=== PATIENT | female | born 1975 | race Caucasian/White ===

== ENCOUNTER 2017-11-08 08:54 | Outpatient (CLI) | payer OTHER ==
[2017-11-08] MEDS ORDERED: Magnevist 469MG/ML 20 ML VIAL ONE (09:00)
[2017-11-08 10:01] LABS: #Basophils 0.1 thou/uL (0.0-0.2); #Eosinphils 0.1 thou/uL (0.0-0.7); #Lymphocytes 1.5 thou/uL (1.20-3.40); #Monocytes 0.4 thou/uL (0.11-0.59); #Neutrophils 4.3 thou/uL (1.40-6.50); %Basophils 1.1 % (0.0-1.0); %Eosinophils 1.8 % (0.0-10.0); %Monocytes 5.8 % (0.0-10.0); %Neutrophils 68.3 % (42.0-75.0); Mean Corpuscular HGB CONC 33.8 g/dL (32.0-36.0); Mean Corpuscular Hemoglobin 30.4 pg (27.0-31.0); Mean Corpuscular Volume 89.9 fl (81.0-99.0); Mean Platelet Volume 6.7 fL (7.4-10.4); Platelet Count 270 thou/uL (130-400); RBC Distribution Width 11.5 % (11.5-14.5); Red Blood Cell (RBC) Count 4.27 mill/uL (4.20-5.40); White Blood Cell (WBC) Count 6.3 thou/uL (4.8-10.8)
[2017-11-08 10:19] LABS: ALT (SGPT) 6 U/L (8-55); AST (SGOT) 16 U/L (5-34); Albumin 4.6 g/dL (3.5-5.0); Alkaline Phosphatase 96 U/L (40-150); Anion Gap 13 mmol/L (10-20); BUN (Urea Nitrogen) 16 mg/dL (7.0-18.7); Bilirubin, Total 0.4 mg/dL (0.2-1.2); Calc. Creatinine Clearance 0 mL/min (70-130); Calcium 9.6 mg/dL (7.8-10.44); Carbon Dioxide 28 mmol/L (22-29); Chloride 105 mmol/L (98-107); Estimated GFR-MDRD 76; Globulin 2.8 g/dL (2.4-3.5); Glucose 79 mg/dL (70-105); Potassium 3.7 mmol/L (3.5-5.1); Protein, Total 7.4 g/dL (6.0-8.3); Sodium 142 mmol/L (136-145)
--- NOTE | 2017-11-08 13:14 | MRI ---
BRAIN MRI WITH AND WITHOUT CONTRAST: Date: 11/08/17 HISTORY: Multiple sclerosis, relapsing. No prior imaging for comparison. FINDINGS: There are bilateral periventricular signal abnormalities. There is no restricted diffusion, mass effe ct, or midline shift. Ventricular system is normal in size. No intracranial hemorrhagic susceptibilit y. Corpus callosal signal abnormality also present. There is no pathologic intra-axial enhancement. IMPRESSION: MRI findings are correlative to the provided history of multiple sclerosis. No active demyelinating l esions are evident by MR imaging. POS: [facility]
--- NOTE | 2017-11-08 13:19 | MRI ---
CERVICAL SPINE MRI WITH AND WITHOUT CONTRAST: Date: 11/08/17 INDICATION: Multiple sclerosis, relapsing. FINDINGS: Mild degenerative hypertrophy at the atlantodental articulation present. There is a mild disc osteoph yte complex at C5-6 effacing ventral thecal sac. No evidence of acute marrow edema. No significant cervical spinal malalignment. Postcontrast imaging reveals no evidence for pathologic intramedullary enhancement. IMPRESSION: 1. No evidence of demyelinating plaque of the cervical spine. 2. Mild degenerative change. POS: [facility]
== END 2017-11-08 08:55 | disposition home or self-care (01) ==
LOC: SCSMRI 08:54
PROVIDERS: ATTEND Student in an Organized Health Care Education/Training Program
DX: G35 Multiple sclerosis (principal); E55.9 Vitamin D deficiency, unspecified; E53.8 Deficiency of other specified B group vitamins
CPT/HCPCS: 36415; 70553; 72156; 80053; 82306; 82607; 85025; A9579

== ENCOUNTER 2018-08-27 09:47 | Outpatient (CLI) | payer OTHER ==
--- NOTE | 2018-08-27 11:44 | ULT ---
ULTRASOUND ABDOMEN COMPLETE: INDICATIONS: Nausea. TECHNIQUE: Ferrari-scale ultrasound evaluation of the liver, gallbladder, spleen, pancreas, common bile duct, kidne ys, abdominal aorta, and inferior vena cava (IVC). FINDINGS: There is no focal hepatic lesion or acute gallbladder pathology. The spleen and kidneys are grossly unremarkable. The common duct is normal, measuring 3 mm in diameter. Crum sign is reported as neg ative. No ascites or other significant pathology identified within the abdomen by sonographic evalua tion. IMPRESSION: No acute intraabdominal pathology. POS: [facility]
== END 2018-08-27 09:48 | disposition home or self-care (01) ==
LOC: SCSULT 09:47
PROVIDERS: ATTEND Internal Medicine
DX: R11.0 Nausea (principal)
CPT/HCPCS: 76700

== ENCOUNTER 2024-03-07 11:12 | Outpatient (CLI) | payer BC | END 2024-03-07 11:13 | disposition home or self-care (01) | LOC: SCSRAD 11:12 | PROVIDERS: ATTEND Nurse Practitioner Family | DX: R09.89 Other specified symptoms and signs involving the circulatory and respiratory systems (principal); J98.4 Other disorders of lung | CPT/HCPCS: 71046 ==

== ENCOUNTER 2024-08-14 13:36 | Outpatient (CLI) | payer BC | END 2024-08-14 13:37 | disposition home or self-care (01) | LOC: BICRAD 13:36 | PROVIDERS: ATTEND Nurse Practitioner Family | DX: S69.92XA Unspecified injury of left wrist, hand and finger(s), initial encounter (principal) ==